=== PATIENT | male | born 1975 | race Caucasian/White ===

== ENCOUNTER 2020-08-02 18:17 | Emergency (ER) | payer BC ==
[~2020-08-02] VITALS: Ht 177.8 cm; Wt 90.9 kg
[2020-08-02 18:17] VITALS: BP 121/78
[~2020-08-02 18:17] MED LIST: CYCL-97 PO; HYDR-757 PO; NAPR220C11 PO
--- NOTE | 2020-08-02 18:28 | ED Upper Extremity ---
General Stated Complaint: R HAND INDEX FINGER LAC Source: patient Exam Limitations: no limitations History of Present Illness Date Seen by Provider: Aug 02, 2020 Time Seen by Provider: 18:25 Initial Comments Laceration to the dorsal aspect of the right pointer finger from his finger slipping while opening a can of refried beans. Last tetanus was about 7 years ago. Onset: just prior to arrival Severity: mild Pain/Injury Location: right 2nd finger Modifying Factors: Worse With Movement Allergies and Home Medications Allergies Coded Allergies: No Known Drug Allergies (Unverified , 05/09/13) Home Medications Cyclobenzaprine Hcl 10 Mg Tablet, 1 TAB PO Q8HR PRN Prescribed by: J LUIS WAN on 05/09/13 1733 Hydrocodone Bit/Acetaminophen 1 Each Tablet, 1 EACH PO Q4H PRN Prescribed by: J LUIS WAN on 05/09/13 1733 Naproxen Sodium 220 Mg Capsule, 220 MG PO, (Reported) Patient Home Medication List Home Medication List Reviewed: Yes Review of Systems Constitutional: see HPI EENTM: see HPI Respiratory: no symptoms reported Cardiovascular: no symptoms reported Genitourinary: no symptoms reported Musculoskeletal: no symptoms reported Skin: see HPI Psychiatric/Neurological: No Symptoms Reported Past Buyhyai-Qdidft-Bcuhgx Hx Patient Social History Recent Foreign Travel: No Contact w/Someone Who Travel: No Immunizations Up To Date Tetanus Booster (TDap): Unknown Past Medical History Abdominal Hernia Physical Exam Vital Signs Capillary Refill : Height, Weight, BMI Height: '" Weight: 205lbs. oz. [id number]; BMI Method: General Appearance: WD/WN, no apparent distress Respiratory: no respiratory distress, no accessory muscle use Shoulder: normal inspection, non-tender Elbow/Forearm: normal inspection, non-tender Wrist: Yes normal inspection, Yes non-tender Hand: Right (2 cm laceration over the dorsal aspect of the right pointer finger at the PIP joint depth to the subcutaneous tissue but not involving the extensor tendon as that function remains intact.) Neurologic/Tendon: normal sensation, normal motor functions, normal tendon functions Neurologic/Psychiatric: alert, normal mood/affect, oriented x 3 Skin: normal color, warm/dry Procedures/Interventions Wound Location: Upper Extremities Wound Length (cm): 2 Wound's Depth, Shape: linear, sub Q Irrigated w/ Saline (ccs): 40 Anesthesia: 1% Lidocaine Volume Anesthetic (ccs): 2 Suture: Ethlion Suture Size: 5-0 Number of Sutures: 5 Layer Closure?: 1 Number Deep Layer Sutures: 0 Progress/Results/Core Measures Results/Orders My Orders Orders - J LUIS WAN APRN Dipht,Pertradha(Acell),Tet Adult (Boostrix (08/02/20 18:30) Lidocaine 1% Inj 20 Ml (Xylocaine 1% Inj (08/02/20 18:30) Departure Impression Primary Impression: Finger laceration Disposition: 01 HOME, SELF-CARE Condition: Stable Departure-Patient Inst. Decision time for Depature: 18:27 Referrals: NO,LOCAL PHYSICIAN (PCP/Family) Primary Care Physician Patient Instructions: Laceration Repair With Stitches (DC) Add. Discharge Instructions: 1. You can shower letting water run over this starting tonight. Pat it dry and keep it covered with a Band-Aid in the meantime. Wear the splint for the next few days to keep the finger from bending excessively which can result in tearing of the stitches. Return to ER in about 10 days to have the stitches removed. Return before then for any sign of infection such as redness or swelling. J LUIS WAN APRN Aug 02, 2020 18:28
[2020-08-02] MEDS ORDERED: LIDOCAINE 1% INJ 20 ML 20 ML VIAL INJ ONE (18:30)
[2020-08-02] MEDS ORDERED: TETANUS,DIPTH,PERTUSS P/F (BOOSTRIX) 0.5 ML VIAL IM ONE (18:30)
== END 2020-08-02 18:55 | disposition home or self-care (01) ==
LOC: EDUNIT# 18:17 → ER 18:18
DX: S61.210A Laceration without foreign body of right index finger without damage to nail, initial encounter (principal); Z23 Encounter for immunization; W01.0XXA Fall on same level from slipping, tripping and stumbling without subsequent striking against object, initial encounter
CPT/HCPCS: 90715